=== PATIENT | male | born 1980 | race Caucasian/White ===

== ENCOUNTER → 2016-09-26 | Outpatient (CLI) | payer OTHER | LOC: M LAB 08:42 | PROVIDERS: ATTEND Internal Medicine Endocrinology, Diabetes & Metabolism | DX: D35.02 Benign neoplasm of left adrenal gland (principal) ==

== ENCOUNTER → 2016-10-08 | Outpatient (REF) | payer OTHER | LOC: M LAB REF 09:24 | PROVIDERS: ATTEND Physician Assistant Medical | DX: D35.02 Benign neoplasm of left adrenal gland (principal) ==

== ENCOUNTER → 2016-10-09 | Outpatient (REF) | payer OTHER | LOC: M LAB REF 09:29 | PROVIDERS: ATTEND Physician Assistant Medical | DX: D35.02 Benign neoplasm of left adrenal gland (principal) ==

== ENCOUNTER → 2017-01-08 | Outpatient (REF) | payer OTHER ==
[2017-01-08 12:56] LABS: ANION GAP 5 MEQ/L (8-16); BLOOD UREA NITROGEN 16 MG/DL (7-18); CALCIUM LEVEL 9.2 MG/DL (8.5-10.1); CARBON DIOXIDE LEVEL 30 MEQ/L (21-32); CHLORIDE LEVEL 106 MEQ/L (98-107); CREATININE FOR GFR 0.98 MG/DL (0.70-1.30); GLOMERULAR FILTRATION RATE > 60.0 (>60); GLUCOSE, FASTING 87 MG/DL (70-105); POTASSIUM SERUM 4.2 MEQ/L (3.5-5.1); SODIUM LEVEL 141 MEQ/L (136-145)
[2017-01-08 13:02] LABS: CORTISOL AM 8.2 UG/DL (4.3-22.4)
== END ==
LOC: M LABDRAW1 12:13
PROVIDERS: ATTEND Internal Medicine Endocrinology, Diabetes & Metabolism
DX: D35.02 Benign neoplasm of left adrenal gland (principal)

== ENCOUNTER → 2017-02-16 | Outpatient (CLI) | payer OTHER ==
[~2017-02-16] MED LIST: COLA100C5 PO; LEXA1TAB2 PO; OXYC1TAB23 PO; TYLE325T5 PO
[2017-02-16 12:48] LABS: INR 0.94
[2017-02-16 12:49] LABS: MEAN CORPUSCULAR HEMOGLOBIN 32.4 pg (27.0-33.0); RED CELL DISTRIBUTION WIDTH 11.9 % (11.5-14.5)
[2017-02-16 13:01] LABS: ANION GAP 10 MEQ/L (8-16); BLOOD UREA NITROGEN 12 MG/DL (7-18); CALCIUM LEVEL 9.4 MG/DL (8.5-10.1); CARBON DIOXIDE LEVEL 26 MEQ/L (21-32); CHLORIDE LEVEL 105 MEQ/L (98-107); CREATININE FOR GFR 0.95 MG/DL (0.70-1.30); GLOMERULAR FILTRATION RATE > 60.0 (>60); GLUCOSE, FASTING 89 MG/DL (70-105); SODIUM LEVEL 141 MEQ/L (136-145)
--- NOTE | 2017-02-16 19:25 | ECGEPIP ---
Stationary ECG Study [facility] Test Date: 2017-02-16 Pat Name: NIKOLAS MCKENNA Department: Room: - Gender: M [employer] Information [employer]: : [id number] Requested By: ALLY Allen Order Number: [id number] Reading MD: Darrian Aguilar Measurements Intervals [place] Rate: 65 P: -15 PA: 150 QRS: -14 QRSD: 88 T: -5 QT: 418 QTc: 436 Interpretive Statements Normal sinus rhythm. Within normal limits Electronically Signed On 02-16-2017 19:25:39 EDT by Darrian Aguilar
--- NOTE | 2017-02-17 02:01 | REP ---
Clinical: [place]'s syndrome . Comparison: None . Technique: PA and lateral. Findings: The mediastinum and cardiac silhouette are normal. The lung anne are clear and without acute consolidation, effusion, or pneumothorax. The skeletal structures are intact and normal. Impression: 1. No acute cardiopulmonary process. Signed by Yan Mejia MD 02/17/2017 01:51 A
== END ==
LOC: M LAB 11:41
PROVIDERS: ATTEND Urology
DX: Z01.818 Encounter for other preprocedural examination (principal); E24.9 Cushing's syndrome, unspecified; D35.00 Benign neoplasm of unspecified adrenal gland

== ENCOUNTER 2017-03-03 11:14 | Inpatient (IN) | payer OTHER ==
[~2017-03-03] VITALS: Ht 175.3 cm; Wt 92.3 kg
[~2017-03-03 11:14] MED LIST changes: -COLA100C5 PO; +GLYCOPYRROLATE INJ 0.2 MG/ML 2 ML VIAL As Ordered ONE; +HYDROmorphone HCL 2 MG/ML 1ML VIAL (J1170) As Ordered ONE; +LR 1,000 ML IV ONE; +MIDAZOLAM INJ 2 MG/2 ML VIAL (J2250) As Ordered ONE; +NEOSTIGMINE 1MG/ML 5 ML SYRINGE (J2710) As Ordered ONE; +ONDANSETRON 4MG/2ML VIAL (J2405) As Ordered ONE; -OXYC1TAB23 PO; +PROPOFOL 200 MG/20 ML VIAL As Ordered ONE; +ROCURONIUM BROMIDE 50 MG/5 ML VIAL/SYRINGE As Ordered ONE; -TYLE325T5 PO; +fentaNYL 100 MCG/2 ML INJECTION (J3010) As Ordered ONE
[2017-03-03] MEDS ORDERED: LIDOCAINE 1% SDV INJ 30 ML VIAL As Ordered ONE (14:10)
[2017-03-03] MEDS ORDERED: BUPIVACAINE HCL 0.25% 30 ML VIAL As Ordered ONE (14:10)
[2017-03-03] MEDS ORDERED: ROCURONIUM BROMIDE 50 MG/5 ML VIAL/SYRINGE As Ordered ONE (15:28)
[2017-03-03] MEDS ORDERED: GLYCOPYRROLATE INJ 0.2 MG/ML 2 ML VIAL As Ordered ONE ×2 (15:30→17:05)
[2017-03-03] MEDS ORDERED: ONDANSETRON 4MG/2ML VIAL (J2405) As Ordered ONE (15:30)
[2017-03-03] MEDS ORDERED: ePHEDrine SULFATE 25 MG/5 ML(5MG/ML) SYRINGE As Ordered ONE (15:31)
[2017-03-03] MEDS ORDERED: LABETALOL HCL 100 MG/20 ML VIAL As Ordered ONE (15:44)
[2017-03-03] MEDS ORDERED: fentaNYL 100 MCG/2 ML INJECTION (J3010) As Ordered ONE (15:54)
[2017-03-03] MEDS ORDERED: NEOSTIGMINE 1MG/ML 5 ML SYRINGE (J2710) As Ordered ONE (17:05)
[2017-03-03] MEDS ORDERED: ONDANSETRON 4MG/2ML VIAL (J2405) IV PRN ×2 (18:00→18:15)
[2017-03-03] MEDS ORDERED: MORPHINE 2 MG/ML 1ML SYRINGE IV PRN (18:00)
[2017-03-03] MEDS ORDERED: ACETAMINOPHEN TAB 650MG DOSE (2X325MG) PO PRN (18:00)
[2017-03-03] MEDS ORDERED: fentaNYL 100 MCG/2 ML INJECTION (J3010) IV PRN (18:15)
[2017-03-03] MEDS ORDERED: HYDROmorphone HCL 1 MG/ML SYRINGE (J1170) IV PRN (18:15)
[2017-03-03] MEDS ORDERED: LR 1,000 ML IV SCH (18:15)
--- NOTE | 2017-03-03 18:25 | ROOPDOC ---
[facility] Report Of Operation Report of Operation DATE OF PROCEDURE: 03/03/17 PREPROCEDURE DIAGNOSIS: Left Adrenal Adenoma. POSTPROCEDURE DIAGNOSIS: Left Adrenal Adenoma. PROCEDURE: Left robotic-assisted laparoscopic adrenalectomy. SURGEON: Ally Caballero MD RETAIL MARKETING COORDINATOR: Treasure Quintanilla NP ANESTHESIA: General. OPERATIVE INDICATIONS: This is a 37 year old male with a [place]'s syndrome due to a 2cm left adrenal adenoma. After a thorough work up confirming the diagnosis, it was recommended that he be brought to the operating room today for the above listed procedure. DESCRIPTION OF PROCEDURE: The patient was brought to the operating room and general anesthesia was induced. Prophylactic antibiotics were infused. He then had a Rangel catheter placed under sterile conditions. He was then placed in the right lateral decubitus position with all pressure points appropriately padded. An axillary roll was placed. He was then secured to the table with tape. He was then prepped and draped in the usual sterile fashion. Initial incision was then for a 12 mm port in line with the 11th rib along the lateral rectus margin. The Veress needle was utilized to achieve pneumoperitoneum. A 12 mm port was then inserted and after which a camera was inserted. There were no apparent injuries from Veress needle or initial trocar placement. The remainder of the ports were then placed under direct vision, including a left hand robotic port just beneath the costal margin and a 5 mm hearing aid assistant port between the left hand port and the camera port. Another 12 mm hearing aid assistant port was placed just distal to the camera port and another robotic port was placed between the anterior-superior iliac spine and umbilicus. After all the ports were placed, the robot was then docked and the instruments were inserted. We began the dissection by mobilizing the left colon medially off of Gerota's fascia. The spleen was also mobilized cephalad off the upper part of Gerota's fascia. We then started dissected down onto the left renal vein. The adrenal vein was identified inserting into the upper part of the vein. The adrenal vein was carefully dissected and then ligated with Weck clips. The vein was then transected in between the clips, leaving 2 clips on the stay side. Once this was done the adrenal gland was dissected off of the upper part of the kidney using the Harmonic scalpel and hot scissors. Of note the adrenal mass was evident growing on the lower aspect of the adrenal gland. Once the adrenal gland was completely dissected it was placed to the side. I then examined the operative field for bleeding and hemostasis was excellent. At this point the adrenal gland was placed in an Endocatch bag for future retrieval. Once this was done, the robot was undocked, and we utilized a Deya fascial closure device to place an #0 Vicryl tie through the fascia of the camera port site. The 12 mm hearing aid assistant port skin site was then extended and the fascia was extended. The specimen was then removed through this incision in the Endocatch bag. The fascia was then closed with a running #0 Vicryl suture. Once this was done the abdomen was insufflated again and we checked the extraction site and there were no intraabdominal contents caught within the extraction site closure. There was no bleeding from the extraction site either. At this point, we removed all of the other ports under direct vision, and there was no bleeding from the port sites. Once all the ports were removed, the previously placed #0 Vicryl free tie was tied down in the camera port site. We then irrigated all of the incisions with sterile saline. Once that was done, the subcutaneous tissue of the extraction site was reapproximated with interrupted #2-0 Vicryl suture. The skin of all incisions were then closed with running #4-0 Monocryl subcuticular suture. Once this was done, local anesthesia was applied and Dermabond was then applied to all the incisions. This marked the conclusion of the procedure. The patient was then taken out of the right lateral decubitus position, awakened from anesthesia and transported to the recovery room in stable condition. ESTIMATED BLOOD LOSS: 10 mL. COMPLICATIONS: None. SPECIMENS: Left adrenal gland. PLAN: The patient will be kept in the hospital for postoperative care. ALLY CABALLERO MD Mar 03, 2017 18:25
[2017-03-03 18:27] LABS: MEAN CORPUSCULAR HEMOGLOBIN 32.2 pg (27.0-33.0); MEAN CORPUSCULAR VOLUME 89.5 fl (80.0-96.0)
[2017-03-03 18:50] LABS: ANION GAP 7 MEQ/L (8-16); BLOOD UREA NITROGEN 14 MG/DL (7-18); CARBON DIOXIDE LEVEL 29 MEQ/L (21-32); CHLORIDE LEVEL 109 MEQ/L (98-107); CREATININE FOR GFR 1.24 MG/DL (0.70-1.30); GLOMERULAR FILTRATION RATE > 60.0 (>60); GLUCOSE, FASTING 120 MG/DL (70-105); POTASSIUM SERUM 3.8 MEQ/L (3.5-5.1); SODIUM LEVEL 145 MEQ/L (136-145)
[2017-03-03 20:00] VITALS: O2SAT 98
[2017-03-03] MEDS: DOCUSATE SODIUM 100 MG CAP PO SCH (20:29)
[2017-03-03] MEDS: PERCOCET 5MG/325MG TAB PO PRN (20:30)
[2017-03-03 20:45] VITALS: BP 160/93
[2017-03-03] MEDS: NS 1,000 ML IV SCH (20:45)
[2017-03-03 21:15] VITALS: BP 173/86
[2017-03-03 22:15] VITALS: BP 136/78
[2017-03-03 23:15] VITALS: BP 171/80
[2017-03-04 00:15] VITALS: BP 169/86
[2017-03-04] MEDS: NS 1,000 ML IV SCH ×2 (00:38→06:33)
[2017-03-04] MEDS: ceFAZolin SOD 1 GM in D5W MINI-BAG PLUS 50 ML IV SCH ×2 (00:38→06:32)
[2017-03-04] MEDS: PERCOCET 5MG/325MG TAB PO PRN ×4 (00:40→13:58)
[2017-03-04 01:15] VITALS: BP 131/65
[2017-03-04 06:00] VITALS: BP 167/87
--- NOTE | 2017-03-04 07:05 | IPNPDOC ---
Assessment/Plan Date Seen The patient was seen on 03/04/17. Patient Summary This is a 37 y/o M POD1 s/p left robotic adrenalectomy. He is doing well. Vitals are stable. His labs from this morning are still pending. Plan/VTE VTE Prophylaxis Ordered?: Yes VTE Exclusion Mechanical Proph: N/A:VTE Prophy Ordered Plan/Urinary Catheter Urinary Catheter: D/C Gregorio Plan - d/c gregorio - d/c IVF - f/u morning labs - percocet prn pain w/ morphine for breakthrough - SCDs - incentive spirometry - ambulate as tolerated - likely discharge home later today if labs/vitals stable and pain is controlled w/ percocet Subjective Review oF Systems Chief Complaint The patient is a 37-year-old male admitted with a reason for visit of Adrenal Mass. Events since Last Encounter No acute events o/n. Pain controlled w/ percocet. No n/v. Patient has no ambulated yet. No f/c/ns. Objective Physical Examination General Exam: Alert, Cooperative, No Acute Distress ABDOMEN EXAM: Other (incisions clean/dry/intact) Skin Exam: Nl turgor and temperature Psych Exam: Mental status NL, Mood NL Other physical findings catheter draining clear urine Vital Signs/I&O Vital Signs Date Time Temp Pulse Resp B/P (MAP) Pulse Ox O2 Delivery O2 Flow Rate FiO2 03/04/17 06:00 16 03/04/17 01:15 99.1 67 131/65 (87) 96 NIPPV (BIPAP/CPAP) 03/03/17 20:00 2.0 I&O- Last 24 Hours up to 6 AM 03/04/17 06:00 Intake Total 3661 ml Output Total 1225 ml Balance 2436 ml Laboratory Data Labs 24H Laboratory Tests 2 03/03/17 18:18: Anion Gap 7L, Glomerular Filtration Rate > 60.0, Blood Urea Nitrogen 14, Creatinine 1.24, Sodium Level 145, Potassium Level 3.8, Chloride Level 109H, Carbon Dioxide Level 29, Calcium Level 9.0 03/04/17 06:24: CBC/BMP Laboratory Tests 03/03/17 18:18 Red Blood Count 4.75, Mean Corpuscular Volume 89.5, Mean Corpuscular Hemoglobin 32.2, Mean Corpuscular Hemoglobin Concent 36.0, Red Cell Distribution Width 13.0 , Calcium Level 9.0 ALLY CABALLERO MD Mar 04, 2017 07:05
[2017-03-04 07:10] LABS: MEAN CORPUSCULAR HEMOGLOBIN 31.4 pg (27.0-33.0); MEAN CORPUSCULAR HGB CONC 34.7 g/dl (32.0-36.5); MEAN CORPUSCULAR VOLUME 90.2 fl (80.0-96.0); WHITE BLOOD COUNT 8.2 K/mm3 (4.0-10.0)
[2017-03-04] MEDS ORDERED: PERCOCET 5MG/325MG TAB PO PRN (07:15)
[2017-03-04 07:32] LABS: ANION GAP 8 MEQ/L (8-16); BLOOD UREA NITROGEN 9 MG/DL (7-18); CALCIUM LEVEL 8.3 MG/DL (8.5-10.1); CARBON DIOXIDE LEVEL 28 MEQ/L (21-32); CHLORIDE LEVEL 106 MEQ/L (98-107); CREATININE FOR GFR 1.01 MG/DL (0.70-1.30); GLOMERULAR FILTRATION RATE > 60.0 (>60); GLUCOSE, FASTING 89 MG/DL (70-105); POTASSIUM SERUM 3.4 MEQ/L (3.5-5.1); SODIUM LEVEL 142 MEQ/L (136-145)
[2017-03-04] MEDS ORDERED: ESCITALOPRAM OXALATE 10 MG TAB (LEXAPRO) PO SCH (09:00)
[2017-03-04] MEDS: DOCUSATE SODIUM 100 MG CAP PO SCH (09:55)
[2017-03-04 11:46] LABS: CORTISOL AM 15.5 UG/DL (4.3-22.4)
[2017-03-04] MEDS ORDERED: COLA100C5 PO (16:11)
[2017-03-04] MEDS ORDERED: TYLE325T5 PO (16:11)
[2017-03-04] MEDS ORDERED: OXYC1TAB23 PO (16:23)
--- NOTE | 2017-03-07 13:18 | DSES ---
DATE OF ADMISSION: 03/03/2017 DATE OF DISCHARGE: 03/04/2017 ADMISSION DIAGNOSIS: Left adrenal adenoma. DISCHARGE DIAGNOSIS: Left adrenal adenoma. ADMITTING PHYSICIAN: Rancho Tadeo MD DISCHARGING PHYSICIAN: Rancho Tadeo MD PROCEDURE PERFORMED: Left robotic-assisted laparoscopic adrenalectomy. HISTORY OF PRESENT ILLNESS: This is a 37-year-old male with a 2 cm left adrenal adenoma which appeared to be functional based on endocrine testing. It was recommended he undergo the above-listed procedure, and he was admitted to the hospital postoperatively. HOSPITALIZATION COURSE: The patient's hospitalization course was unremarkable. His pain was very well controlled with oral pain medication on postoperative day #1. All of his laboratories were within normal limits, and he did not display any signs of adrenal insufficiency. He was tolerating a regular diet, and he was ambulating well. His catheter was removed on postoperative day #1, and he voided without any difficulty. He was therefore deemed ready for discharge on postoperative day #1 and in good condition. He will followup in the clinic in a week or two for a postoperative visit. ALFONZO
== END 2017-03-04 17:40 | disposition home or self-care (01) | DRG 614 ==
LOC: M OR 11:14 → M MS5PR 19:10
PROVIDERS: ADMIT Urology; ATTEND Urology
PROC: 8E0W4CZ Robotic Assisted Procedure of Trunk Region, Percutaneous Endoscopic Approach (ICD-10-PCS; 2017-03-03)
PROC: 0GT24ZZ Resection of Left Adrenal Gland, Percutaneous Endoscopic Approach (ICD-10-PCS; principal; 2017-03-03 13:15)
DX: D35.00 Benign neoplasm of unspecified adrenal gland (principal); E24.9 Cushing's syndrome, unspecified; Z79.899 Other long term (current) drug therapy; F43.10 Post-traumatic stress disorder, unspecified; Z87.891 Personal history of nicotine dependence

== ENCOUNTER → 2017-03-10 | Outpatient (CLI) | payer OTHER ==
[~2017-03-10] MED LIST changes: +COLA100C5 PO; -GLYCOPYRROLATE INJ 0.2 MG/ML 2 ML VIAL As Ordered ONE; -HYDROmorphone HCL 2 MG/ML 1ML VIAL (J1170) As Ordered ONE; -LR 1,000 ML IV ONE; -MIDAZOLAM INJ 2 MG/2 ML VIAL (J2250) As Ordered ONE; -NEOSTIGMINE 1MG/ML 5 ML SYRINGE (J2710) As Ordered ONE; -ONDANSETRON 4MG/2ML VIAL (J2405) As Ordered ONE; +OXYC1TAB23 PO; -PROPOFOL 200 MG/20 ML VIAL As Ordered ONE; -ROCURONIUM BROMIDE 50 MG/5 ML VIAL/SYRINGE As Ordered ONE; +TYLE325T5 PO; -fentaNYL 100 MCG/2 ML INJECTION (J3010) As Ordered ONE
[2017-03-10 13:21] LABS: MEAN CORPUSCULAR HEMOGLOBIN 32.2 pg (27.0-33.0); MEAN CORPUSCULAR HGB CONC 35.6 g/dl (32.0-36.5); MEAN CORPUSCULAR VOLUME 90.6 fl (80.0-96.0); RED CELL DISTRIBUTION WIDTH 12.6 % (11.5-14.5); WHITE BLOOD COUNT 5.2 K/mm3 (4.0-10.0)
[2017-03-10 13:34] LABS: ANION GAP 9 MEQ/L (8-16); BLOOD UREA NITROGEN 19 MG/DL (7-18); CALCIUM LEVEL 9.1 MG/DL (8.5-10.1); CARBON DIOXIDE LEVEL 26 MEQ/L (21-32); CHLORIDE LEVEL 109 MEQ/L (98-107); CREATININE FOR GFR 0.96 MG/DL (0.70-1.30); GLOMERULAR FILTRATION RATE > 60.0 (>60); GLUCOSE, FASTING 100 MG/DL (70-105); POTASSIUM SERUM 4.5 MEQ/L (3.5-5.1); SODIUM LEVEL 144 MEQ/L (136-145)
== END ==
LOC: M SMT 10:55
PROVIDERS: ATTEND Urology
DX: D35.00 Benign neoplasm of unspecified adrenal gland (principal)

== ENCOUNTER → 2017-06-05 | Outpatient (CLI) | payer OTHER | LOC: M LAB 08:42 | PROVIDERS: ATTEND Internal Medicine Endocrinology, Diabetes & Metabolism | DX: D35.02 Benign neoplasm of left adrenal gland (principal) ==

== ENCOUNTER → 2017-06-06 | Outpatient (CLI) | payer OTHER | LOC: M LAB 08:37 | PROVIDERS: ATTEND Internal Medicine Endocrinology, Diabetes & Metabolism | DX: D35.02 Benign neoplasm of left adrenal gland (principal) ==

== ENCOUNTER → 2020-11-23 | Outpatient (REF) | payer OTHER ==
[2020-11-23 14:31] LABS: SOURCE, BODY FLUID OTHER; SYNOVIAL FLUID COLOR RED (COLORLESS)
[2020-11-23 14:41] LABS: CRYSTALS, BODY FLUID NONE SEEN (NONE SEEN); SOURCE, BODY FLUID CRYSTALS OTHER
== END ==
LOC: M LAB REF 13:55
PROVIDERS: ATTEND Emergency Medicine
DX: M71.9 Bursopathy, unspecified (principal)

== ENCOUNTER 2022-10-23 16:00 | Emergency (ER) | payer OTHER ==
[~2022-10-23] VITALS: Ht 175.3 cm; Wt 100.0 kg
[2022-10-23] MEDS ORDERED: KETOROLAC 30 MG/ML 1ML VIAL IV ONE (17:15)
[2022-10-23] MEDS ORDERED: ONDANSETRON 4MG 2ML VIAL IV ONE (17:15)
[2022-10-23] MEDS ORDERED: NS 1,000 ML IV ONE (17:15)
[2022-10-23 17:32] LABS: BASO # 0.1 10^3/uL (0.0-0.2); BASO % 0.6 % (0.0-1.0); EOS # 0.2 10^3/uL (0.0-0.5); EOS % 1.5 % (0.0-3.0); HEMATOCRIT 46.5 % (42.0-52.0); HEMOGLOBIN 16.4 g/dl (13.5-17.5); LYMPH # 1.9 10^3/uL (1.5-5.0); LYMPH % 12.7 % (24.0-44.0); MEAN CORPUSCULAR HEMOGLOBIN 32.2 pg (27.0-33.0); MEAN CORPUSCULAR HGB CONC 35.3 g/dl (32.0-36.5); MEAN CORPUSCULAR VOLUME 91.2 fl (80.0-96.0); MONO % 6.8 % (2.0-8.0); NEUTROPHILS # 11.8 10^3/uL (1.5-8.5); NEUTROPHILS % 78.1 % (36.0-66.0); PLATELET COUNT, AUTOMATED 247 10^3/uL (150-450); WHITE BLOOD COUNT 15.1 10^3/uL (4.0-10.0)
[2022-10-23 17:54] LABS: LIPASE 34 U/L (12-53)
[2022-10-23 17:56] LABS: ALBUMIN 4.1 G/DL (3.2-5.2); ALKALINE PHOSPHATASE 107 U/L (46-116); ALT/SGPT 142 U/L (7.0-40); AST/SGOT 44 U/L (<34); BILIRUBIN,TOTAL 0.5 MG/DL (0.3-1.2); BLOOD UREA NITROGEN 18 MG/DL (9-23); CALCIUM LEVEL 9.3 MG/DL (8.5-10.1); CARBON DIOXIDE LEVEL 23 MMOL/L (20-31); CHLORIDE LEVEL 106 MMOL/L (98-107); CREATININE FOR GFR 1.38 MG/DL (0.70-1.30); GLOMERULAR FILTRATION RATE > 60.0 (>60); GLUCOSE, FASTING 104 MG/DL (60-100); POTASSIUM SERUM 4.3 MMOL/L (3.5-5.1); SODIUM LEVEL 140 MMOL/L (136-145); TOTAL PROTEIN 6.9 G/DL (5.7-8.2)
[2022-10-23] MEDS ORDERED: TAMSULOSIN 0.4 MG CAP PO ONE (20:00)
[2022-10-23] MEDS ORDERED: NORCO 5/325MG TABLET (HOME DOSE PACK) PO ONE (20:05)
[2022-10-23] MEDS ORDERED: HYDR-3713 PO (20:06)
[2022-10-23] MEDS ORDERED: FLOM0.4C39 PO (20:06)
[2022-10-23 20:33] VITALS: BP 135/85
== END 2022-10-23 20:40 | disposition home or self-care (01) ==
LOC: M ED 16:00
DX: R79.89 Other specified abnormal findings of blood chemistry (principal); N20.1 Calculus of ureter; N21.8 Other lower urinary tract calculus; Z79.899 Other long term (current) drug therapy
CPT/HCPCS: 74176; 80053; 81001; 83690; 85025; 96374; 96375; 99284; J1885; J2405

== ENCOUNTER → 2022-10-29 | Outpatient (CLI) | payer OTHER ==
[~2022-10-29] MED LIST changes: +FLOM0.4C39 PO; +HYDR-3713 PO; +ISOVUE-370 76% 100ML VIAL As Ordered ONE
== END ==
LOC: M RAD 08:49
PROVIDERS: ATTEND Urology
DX: N20.0 Calculus of kidney (principal)
CPT/HCPCS: 74178; Q9967

== ENCOUNTER → 2023-02-12 | Outpatient (CLI) | payer OTHER ==
[~2023-02-12] MED LIST changes: -ISOVUE-370 76% 100ML VIAL As Ordered ONE
== END ==
LOC: M WUC 09:12
PROVIDERS: ATTEND Nurse Practitioner Family
DX: M25.571 Pain in right ankle and joints of right foot (principal)

== ENCOUNTER → 2023-11-12 | Outpatient (CLI) | payer OTHER | LOC: M PLAIMG 15:14 | PROVIDERS: ATTEND Urology | DX: R31.29 Other microscopic hematuria (principal); N20.0 Calculus of kidney; Z12.5 Encounter for screening for malignant neoplasm of prostate | CPT/HCPCS: 36415; 74018; G0103 ==

== ENCOUNTER → 2024-11-17 | Outpatient (CLI) | payer OTHER ==
[~2024-11-17] MED LIST changes: -FLOM0.4C39 PO; +TAMS-18 PO
== END ==
LOC: M PLAIMG 11:49
PROVIDERS: ATTEND Urology
DX: N20.0 Calculus of kidney (principal); Z12.5 Encounter for screening for malignant neoplasm of prostate
CPT/HCPCS: 36415; 74018; G0103